=== PATIENT | male | born 1995 | race Caucasian/White ===

== ENCOUNTER → 2020-05-20 | Outpatient (CLI) | payer BC ==
--- NOTE | 2020-05-20 17:17 | Diagnostic Imaging Report ---
PROCEDURE: CT urinary tract, rule out kidney stone, 05/20/2020. TECHNIQUE: Multiple contiguous axial images were obtained through the abdomen and pelvis without the use of intravenous contrast. Auto Exposure Controls were utilized during the CT exam to meet ALARA standards for radiation dose reduction. INDICATION: Left sided abdominal pain radiating posterior and anterior, started earlier yesterday. No hematuria. FINDINGS: There is a 4 mm stone in the distal left ureter proximal to the UVJ with secondary mild left hydroureteronephrosis. There are no renal stones on either side. No ureteral stones on the right. No ascites or free air appreciated. The remaining abdominal viscera unremarkable in the setting of a noncontrast examination. The osseous structures are intact. The lung bases unremarkable. IMPRESSION: 1. Approximately 4 mm stone distal left ureter with secondary mild left hydroureteronephrosis. Dictated by: Dictated on workstation # [id number]
== END ==
LOC: RAD 16:33
PROVIDERS: ATTEND Nurse Practitioner Family
DX: N13.2 Hydronephrosis with renal and ureteral calculous obstruction (principal); N50.812 Left testicular pain
CPT/HCPCS: 74176